=== PATIENT | female | born 1980 | race African-American/Black ===

== ENCOUNTER 2021-09-07 19:37 | Inpatient (IN) | payer BC, OTHER ==
[2021-09-07] MEDS: DEXTROSE 5%-LACTATED RINGERS 1,000 ML IV SCH (21:00)
[2021-09-07 21:10] LABS: BASO % 0.9 % (0-2.0); HEMATOCRIT 38.3 % (32.4-45.2); HEMOGLOBIN 12.8 GM/dL (10.7-15.3); LYMPH % 29.3 % (8-40); MCHC 33.4 g/dl (32.0-36.0); MEAN CELL VOLUME 86.9 fl (80-96); MEAN PLT VOLUME 9.9 fl (7.5-11.1); MONO % 8.1 % (3.8-10.2); NEUT % 60.7 % (42.8-82.8); PLATELET COUNT 147 10^3/uL (134-434); RBC 4.41 M/mm3 (3.60-5.2); WHITE BLOOD COUNT 6.4 K/mm3 (4.0-10.0)
[2021-09-07 21:14] LABS: INR 1.11 (0.83-1.09); PROTHROMBIN TIME (PATIENT) 12.8 SEC (9.7-13.0)
[2021-09-07 21:16] LABS: ACTIVATED PTT 29.1 SECONDS (25.2-36.5)
[2021-09-07 21:32] LABS: BLOOD UREA NITROGEN 12.9 mg/dL (7-18); CALCIUM 8.8 mg/dL (8.5-10.1)
[2021-09-07 21:36] LABS: CREATININE 0.5 mg/dL (0.55-1.3)
[2021-09-07] MEDS ORDERED: OXYTOCIN 30 UNITS in 0.9% NS 30 UNIT/500 ML INFUS.BAG IVPB SCH (21:45)
[2021-09-07 21:58] LABS: SYPHILIS W/ RPR CONF NON-REACTIVE (NONREACTIVE)
[2021-09-07 22:04] VITALS: BMI 40.9
[2021-09-07] MEDS ORDERED: OXYTOCIN 30 UNITS in 0.9% NS 30 UNIT/500 ML INFUS.BAG IVPB ONE (22:05)
[2021-09-08] MEDS ORDERED: morphine SULFATE 4 MG/ML VIAL IVPB ONE ×2 (02:19→06:58)
[2021-09-08 04:03] LABS: HIV INTERPRETATION NEGATIVE (NEGATIVE)
[2021-09-08] MEDS: DEXTROSE 5%-LACTATED RINGERS 1,000 ML IV SCH ×2 (05:30→09:20)
[2021-09-08] MEDS ORDERED: SODIUM CHLORIDE 1,000 ML IV STA (08:21)
[2021-09-08] MEDS ORDERED: FENTANYL/BUPIVACAINE/NS/PF - PCEA - 50 ML DISP.SYRIN EP ONE (08:24)
[2021-09-08] MEDS ORDERED: NALOXONE HCL 0.4 MG/ML VIAL IVPUSH PRN (08:42)
[2021-09-08] MEDS ORDERED: BUPIVACAINE HCL/PF 0.25% (2.5MG/ML) 10 ML VIAL ONE (08:43)
[2021-09-08] MEDS: FENTANYL/BUPIVACAINE/NS/PF - PCEA - 50 ML DISP.SYRIN EP SCH (09:05)
[2021-09-08] MEDS ORDERED: OXYTOCIN 20 UNITS in 0.9% NS 20 UNIT/1,000 ML INFUS.BAG IV ONE ×2 (10:17→10:48)
[2021-09-08 12:22] LABS: CORD BASE EXCESS -6.3 mmol/L (0-2); CORD PCO2 68.5 mmHg (30-78); CORD pH 7.163 (7.14-7.44)
[2021-09-08 12:25] LABS: CORD BASE EXCESS -4.3 mmol/L (0-2); CORD HCO3 21.8 mmHg (20-29); CORD PCO2 43.7 mmHg (30-78); CORD pH 7.316 (7.14-7.44)
[2021-09-08] MEDS ORDERED: WITCH HAZEL 50% (TUCKS) 40 PAD/JAR PAD TP PRN (13:36)
[2021-09-08] MEDS ORDERED: BENZOCAINE 20% 57 GM BOTTLE TP PRN (13:36)
[2021-09-08] MEDS ORDERED: ACETAMINOPHEN 325 MG TABLET (FP) PO PRN (13:36)
[2021-09-08] MEDS ORDERED: BISACODYL 10 MG SUPP.RECT RC PRN (13:36)
[2021-09-08] MEDS ORDERED: BENZOCAINE 28 GM HEMORRHOIDAL OINTMENT TP PRN (13:36)
[2021-09-08] MEDS ORDERED: OXYTOCIN 20 UNITS in 0.9% NS 20 UNIT/1,000 ML INFUS.BAG IV SCH (13:45)
[2021-09-08] MEDS: FERROUS SO4 325 MG TABLET (FP) PO SCH (16:49)
[2021-09-08] MEDS: IBUPROFEN 600 MG TABLET (FP) PO PRN ×2 (16:49→21:07)
[2021-09-09] MEDS: IBUPROFEN 600 MG TABLET (FP) PO PRN ×3 (06:22→21:29)
[2021-09-09 08:32] LABS: BASO % 0.4 % (0-2.0); EOS % 0.9 % (0-4.5); HEMATOCRIT 35.8 % (32.4-45.2); HEMOGLOBIN 11.9 GM/dL (10.7-15.3); LYMPH % 23.8 % (8-40); MCH 29.3 pg (25.7-33.7); MCHC 33.3 g/dl (32.0-36.0); MEAN CELL VOLUME 88.1 fl (80-96); MEAN PLT VOLUME 10.5 fl (7.5-11.1); MONO % 6.1 % (3.8-10.2); NEUT % 68.8 % (42.8-82.8); PLATELET COUNT 144 10^3/uL (134-434); RBC 4.06 M/mm3 (3.60-5.2); RDW 15.1 % (11.6-15.6); WHITE BLOOD COUNT 6.5 K/mm3 (4.0-10.0)
[2021-09-09] MEDS: FERROUS SO4 325 MG TABLET (FP) PO SCH ×3 (08:58→17:59)
[2021-09-09] MEDS: PRENATAL VITAMINS W/ FOLIC ACID TABLET (FP) PO SCH (09:03)
[2021-09-09] MEDS: NIFEdipine E.R. 30 MG TABLET PO SCH (09:29)
[2021-09-09] MEDS: FENTANYL/BUPIVACAINE/NS/PF - PCEA - 50 ML DISP.SYRIN EP SCH (09:49)
[2021-09-09] MEDS: DEXTROSE 5%-LACTATED RINGERS 1,000 ML IV SCH (20:45)
[2021-09-09 21:29] VITALS: TEMP 98.3
[2021-09-09] MEDS ORDERED: SENNOSIDES/DOCUSATE COMBO (SENNA PLUS) TABLET (UD) PO PRN (22:00)
[2021-09-10 08:42] LABS: POC NITRAZINE POS
[2021-09-10] MEDS: NIFEdipine E.R. 30 MG TABLET PO SCH (09:39)
[2021-09-10] MEDS: PRENATAL VITAMINS W/ FOLIC ACID TABLET (FP) PO SCH (09:39)
[2021-09-10] MEDS: IBUPROFEN 600 MG TABLET (FP) PO PRN (09:39)
[2021-09-10] MEDS: FERROUS SO4 325 MG TABLET (FP) PO SCH (09:39)
[2021-09-10 12:12] VITALS: BP 113/63; PULSE 56
== END 2021-09-10 12:30 | disposition home or self-care (01) | DRG 807 ==
LOC: JLDR 19:37 → J3W 09-08 13:07
PROVIDERS: ADMIT Obstetrics & Gynecology Maternal & Fetal Medicine; ATTEND Obstetrics & Gynecology Maternal & Fetal Medicine
PROC: 10E0XZZ Delivery of Products of Conception, External Approach (ICD-10-PCS; principal; 2021-09-08)
PROC: 3E033VJ Introduction of Other Hormone into Peripheral Vein, Percutaneous Approach (ICD-10-PCS; 2021-09-08)
DX: O10.92 Unspecified pre-existing hypertension complicating childbirth (principal); Z37.0 Single live birth; O24.420 Gestational diabetes mellitus in childbirth, diet controlled; O99.214 Obesity complicating childbirth; E66.01 Morbid (severe) obesity due to excess calories; Z3A.39 39 weeks gestation of pregnancy
CPT/HCPCS: 36415; 36600; 59409; 80048; 82803; 83986-QW; 85025; 85610; 85730; 86780; 86850; 86900; 86901; 87389; 88307-TC